=== PATIENT | male | born 1965 | race Caucasian/White ===

== ENCOUNTER 2017-03-15 12:01 | Day surgery (SDC) | payer OTHER ==
[~2017-03-15] VITALS: Ht 193 cm; Wt 132.0 kg
[~2017-03-15 12:01] MED LIST: ATENOLOL50 MG PO; DAILY MULTIPLE1 EACH PO; FLEXERIL10 MG PO; FLONASE16 G1 BOTH NARES; GLUCOSAMINE &1 EAC1 PO; HYDROCHLOROTHIA25 MG PO; IBUPROFEN800 MG PO; LORTAB 5-325 M1 EACH PO; MECLIZINE HCL25 MG PO; NAPROSYN-EC500 MG PO; NAPROXEN500 MG PO; NORCO 5/3251 TABLET PO; POTASSIUM-9999 MG PO; TENORMIN25 MG PO; TYLENOL ARTHRI650 MG PO; TYLENOL EXTRA500 MG PO; VENTOLIN HFA18 GM IH
[2017-03-15 12:41] VITALS: BP 137/92
[2017-03-15 17:41] VITALS: BP 169/100
== END 2017-03-15 18:25 | disposition home or self-care (01) ==
LOC: SDC 12:01
DX: M19.011 Primary osteoarthritis, right shoulder (principal); M75.41 Impingement syndrome of right shoulder; M75.101 Unspecified rotator cuff tear or rupture of right shoulder, not specified as traumatic; I10 Essential (primary) hypertension; J45.909 Unspecified asthma, uncomplicated; K21.9 Gastro-esophageal reflux disease without esophagitis; Z88.0 Allergy status to penicillin; Z82.49 Family history of ischemic heart disease and other diseases of the circulatory system; Z87.891 Personal history of nicotine dependence
CPT/HCPCS: J0171; J0330; J1100; J1885; J2250; J2405; J2795; J3010

== ENCOUNTER → 2017-12-13 | Outpatient (CLI) | payer OTHER | END | disposition home or self-care (01) | LOC: CDC 12:02 | DX: Z01.810 Encounter for preprocedural cardiovascular examination (principal); M79.641 Pain in right hand; M79.642 Pain in left hand; G56.03 Carpal tunnel syndrome, bilateral upper limbs | CPT/HCPCS: 93000 ==